=== PATIENT | male | born 1940 | race Caucasian/White ===

== ENCOUNTER 2024-04-15 08:41 | Emergency (ER) | payer OTHER ==
[2024-04-15 08:57] VITALS: TEMP 98
[2024-04-15] MEDS ORDERED: DUONEB 0.5-3 MG/3 ml Neb IH ONE (09:13)
--- NOTE | 2024-04-15 09:19 | ERPHSYRPT ---
- History of Present Illness Time Seen by Provider: 04/15/24 08:48 Source: patient, family, EMS Exam Limitations: no limitations Patient Subjective Stated Complaint: weakness Triage Nursing Assessment: Patient brought into ED per EMS and transferred to bed with assist of 3. Patient A+O X 3. Patient's skin pink, warm and dry. Patient complains of increased weakness causing falls. POA states patient has hx of lung and colon cancer dx in December. Patient just finished radiation/chemo last week. Patient has increased weakness and falls. Physician History: 83 years old male with history of COPD, tobacco abuse, GERD, hypertension, anxiety, chronic pain, recently diagnosed with with lung cancer/colon cancer status post chemoradiation's presented in the ER with increased generalized weakness fatigue tiredness. Patient does have oral thrush and has decreased oral intake. Patient feels weak to the point that he fell in the bathroom last night and hit his right elbow and wrist with skin tear. Does report hitting his head but no loss of consciousness. Reports minimal headache but no neck pain. Has shortness of breath at his baseline which is not any worse than usual. Patient does have oxygen at home which he uses as needed and currently oxygen saturation is 93% on room air. No fever or chills reported. According to [id number] who is the POA patient is having weight loss for almost 1 week because of poor intake. Allergies/Adverse Reactions: Penicillins Allergy (Verified 04/15/24 08:44) Hx Tetanus, Diphtheria Vaccination/Date Given: No Hx Influenza Vaccination/Date Given: No Hx Pneumococcal Vaccination/Date Given: No Immunizations Up to Date: Yes Travel Risk - International Travel Have you traveled outside of the country in past 3 weeks: No - Emerging Infectious Disease Are you exhibiting symptoms associated with any current EIDs: No - Review of Systems Constitutional: Fatigue, Weakness Eyes: No Symptoms Ears, Nose, & Throat: Nose Congestion, Sinus Drainage Respiratory: Cough, Dyspnea, Wheezing Cardiac: No Symptoms Abdominal/Gastrointestinal: No Symptoms Genitourinary Symptoms: No Symptoms Musculoskeletal: Arthralgias, Fall Skin: Skin Lesions Neurological: No Symptoms Psychological: Anxiety Endocrine: No Symptoms Hematologic/Lymphatic: No Symptoms Immunological/Allergic: No Symptoms - Past Medical History Pertinent Past Medical History: Yes Neurological History: No Pertinent History ENT History: No Pertinent History Cardiac History: No Pertinent History Respiratory History: COPD, Lung Cancer Endocrine Medical History: No Pertinent History Musculoskeletal History: No Pertinent History GI Medical History: Colorectal Cancer, GERD History: No Pertinent History Psycho-Social History: No Pertinent History Male Reproductive Disorders: Prostate Problems Other Medical History: Lung cancer and colon cancer - Past Surgical History Past Surgical History: No Neuro Surgical History: No Pertinent History Cardiac: No Pertinent History Respiratory: No Pertinent History Gastrointestinal: No Pertinent History Genitourinary: No Pertinent History Musculoskeletal: No Pertinent History Male Surgical History: No Pertinent History Other Surgical History: Port placement - Social History Smoking Status: Current every day smoker How long have you smoked: years Exposure to second hand smoke: No Drug Use: none - Social Determinants of Health Will the patient participate in the screening: Yes Do you worry about a steady place to live?: No Do you have any problems with any of the following?: No known problems In the past 12 months,have you had to go without utilities?: No Transportation Issues: No Has anyone in your support network made you feel unsafe?: No Have you or anyone in your house had to go without enough: No - Nursing Vital Signs Nursing Vital Signs: Initial Vital Signs Temperature 98.0 F 04/15/24 08:46 Pulse Rate 88 04/15/24 08:46 Respiratory Rate 35 H 04/15/24 08:46 Blood Pressure 149/80 04/15/24 08:46 O2 Sat by Pulse Oximetry 100 04/15/24 08:46 Pain Scale Pain Intensity 4 - Physical Exam General Appearance: no apparent distress, alert Eye Exam: PERRL/EOMI Ears, Nose, Throat Exam: moist mucous membranes, pharyngeal erythema, other (Oral thrush) Neck Exam: normal inspection, non-tender, supple, full range of motion Respiratory Exam: diminished breath sounds, rhonchi, wheezing Cardiovascular Exam: regular rate/rhythm, normal heart sounds Gastrointestinal/Abdomen Exam: soft, normal bowel sounds, No tenderness Back Exam: normal inspection Extremity Exam: normal range of motion, other (Skin tear right hand/elbow with intact range of motion. 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, sensation nml, No motor deficits Skin Exam: normal color SpO2 Interpretation: O2 applied SpO2: 100 O2 Delivery: Nasal Cannula - Course EKG Interpreted by Me: RATE (89), Sinus Rhythm, NORMAL AXIS, Q-wave, Non- specific ST Changes Ordered Tests: Active Orders 24 hr Category Date Time Status Test Department Helper STAT Care 04/15/24 09:07 Active EKG-ER Only STAT Care 04/15/24 09:06 Active IV Insertion STAT Care 04/15/24 09:06 Active Oxygen-ED Only Nasal Cannula 2 lpm Care 04/15/24 09:06 Active CERVICAL SPINE WO CONTRAST [CT] Stat Exams 04/15/24 09:06 Completed CHEST 1 VIEW (PORTABLE) Stat Exams 04/15/24 09:07 Completed ELBOW (MINIMUM 3 VIEWS) Stat Exams 04/15/24 09:15 Completed HEAD WITHOUT CONTRAST [CT] Stat Exams 04/15/24 09:06 Completed WRIST (MIN 3 VIEWS) Stat Exams 04/15/24 09:15 Completed BLOOD CULTURE Stat Lab 04/15/24 09:06 Received CBC W DIFF Stat Lab 04/15/24 09:40 Completed CMP Stat Lab 04/15/24 09:40 Completed Lactic Acid Stat Lab 04/15/24 09:38 Completed MAGNESIUM Stat Lab 04/15/24 09:40 Completed TROPONIN Q4H Lab 04/15/24 09:40 Completed UA W/RFX UR CULTURE Stat Lab 04/15/24 09:42 Completed Medication Summary Discontinued Medications Generic Name Dose Route Start Last Admin Trade Name Freq PRN Reason Stop Dose Admin Albuterol/Ipratropium 3 ml 04/15/24 09:06 04/15/24 09:32 Ipratropium/Albuterol Sulfate 3 Ml Ampul.Neb IH 04/15/24 09:07 3 ml STAT ONE Administration Albuterol/Ipratropium Confirm 04/15/24 09:13 Ipratropium/Albuterol Sulfate 3 Ml Ampul.Neb Administered 04/15/24 09:14 Dose 3 ml IH .STK-MED ONE Heparin Sodium (Beef Lung) Confirm 04/15/24 13:44 Heparin Lock Flush Pf 500 Units/5 Ml Syringe Administered 04/15/24 13:45 Dose 500 units .ROUTE .STK-MED ONE Lab/Rad Data: Laboratory Result Diagrams 04/15/24 09:40 04/15/24 09:40 Laboratory Results 04/15/24 04/15/24 04/15/24 Range/Units 09:42 09:40 09:40 WBC (4.23-9.07) x10^3/uL RBC (4.63-6.08) x10^6/uL Hgb (13.7-17.5) g/dL Hct (40.1-51.0) % MCV (79.0-92.2) fL MCH (25.7-32.2) pg MCHC (32.3-36.5) g/dL RDW (11.6-14.4) % Plt Count (163-337) x10^3/uL MPV (9.4-12.4) fL Gran % (34.0-67.9) % Immature Gran % (Auto) (0.001-0.429) % Nucleat RBC Rel Count (0.00-0.2) % Eos # (Auto) (0.04-0.54) x10^3/uL Immature Gran # (Auto) (0.001-0.031) x10^3u/L Absolute Lymphs (auto) (1.32-3.57) x10^3/uL Absolute Monos (auto) (0.30-0.82) x10^3/uL Absolute Nucleated RBC (0.00-0.012) x10^3u/L Lymphocytes % (21.8-53.1) % Monocytes % (5.3-12.2) % Eosinophils % (0.8-7.0) % Basophils % (0.2-1.2) % Absolute Granulocytes (1.78-5.38) x10^3/uL Basophils # (0.01-0.08) x10^3/uL Sodium 132 L (135-145) mmol/L Potassium 3.3 L (3.5-5.1) mmol/L Chloride 95 L (98-107) mmol/L Carbon Dioxide 32 H (22-30) mmol/L Anion Gap 8.2 (5-15) MEQ/L BUN 23 H (9-20) mg/dL Creatinine 0.96 (0.66-1.25) mg/dL Estimated GFR 78.9 ML/MIN Glucose 106 (74-106) mg/dL Lactic Acid (0.4-2.0) Calcium 11.3 H (8.4-10.2) mg/dL Magnesium 1.9 (1.6-2.3) mg/dL Total Bilirubin 0.50 (0.2-1.3) mg/dL AST 58 (17-59) U/L ALT 92 H (0-50) U/L Alkaline Phosphatase 186 H (38-126) U/L Troponin I 0.013 (0.000-0.033) ng/mL Serum Total Protein 5.2 L (6.3-8.2) g/dL Albumin 2.5 L (3.5-5.0) g/dL Urine Color Yellow (Yellow) Urine Appearance Cloudy A (Clear) Urine pH 6.5 (4.6-8.0) Ur Specific [place] 1.010 (1.005-1.030) Urine Protein Negative (Negative) Urine Glucose (UA) Negative (Negative) mg/dL Urine Ketones Negative (Negative) Urine Blood Negative (Negative) Urine Nitrite Negative (Negative) Urine Bilirubin Negative (Negative) Urine Urobilinogen 0.2 (0.2) mg/dL Ur Leukocyte Esterase Negative (Negative) U Hyaline Cast (Auto) NONE SEEN (0-2) /LPF Urine Microscopic RBC 0-2 (0-5) /HPF Urine Microscopic WBC 3-5 (0-5) /HPF Ur Epithelial Cells None Seen (None Seen) /HPF Urine Bacteria None Seen (None Seen) /HPF Urine Culture Reflexed NO (NO) 04/15/24 04/15/24 Range/Units 09:40 09:38 WBC 3.6 L (4.23-9.07) x10^3/uL RBC 2.69 L (4.63-6.08) x10^6/uL Hgb 7.9 L (13.7-17.5) g/dL Hct 24.6 L (40.1-51.0) % MCV 91.4 (79.0-92.2) fL MCH 29.4 (25.7-32.2) pg MCHC 32.1 L (32.3-36.5) g/dL RDW 19.5 H (11.6-14.4) % Plt Count 151 L (163-337) x10^3/uL MPV 10.1 (9.4-12.4) fL Gran % 82.1 H (34.0-67.9) % Immature Gran % (Auto) 0.8 H (0.001-0.429) % Nucleat RBC Rel Count 0.0 (0.00-0.2) % Eos # (Auto) 0.04 (0.04-0.54) x10^3/uL Immature Gran # (Auto) 0.03 (0.001-0.031) x10^3u/L Absolute Lymphs (auto) 0.31 L (1.32-3.57) x10^3/uL Absolute Monos (auto) 0.26 L (0.30-0.82) x10^3/uL Absolute Nucleated RBC 0.00 (0.00-0.012) x10^3u/L Lymphocytes % 8.5 L (21.8-53.1) % Monocytes % 7.2 (5.3-12.2) % Eosinophils % 1.1 (0.8-7.0) % Basophils % 0.3 (0.2-1.2) % Absolute Granulocytes 2.98 (1.78-5.38) x10^3/uL Basophils # 0.01 (0.01-0.08) x10^3/uL Sodium (135-145) mmol/L Potassium (3.5-5.1) mmol/L Chloride (98-107) mmol/L Carbon Dioxide (22-30) mmol/L Anion Gap (5-15) MEQ/L BUN (9-20) mg/dL Creatinine (0.66-1.25) mg/dL Estimated GFR ML/MIN Glucose (74-106) mg/dL Lactic Acid 0.9 (0.4-2.0) Calcium (8.4-10.2) mg/dL Magnesium (1.6-2.3) mg/dL Total Bilirubin (0.2-1.3) mg/dL AST (17-59) U/L ALT (0-50) U/L Alkaline Phosphatase (38-126) U/L Troponin I (0.000-0.033) ng/mL Serum Total Protein (6.3-8.2) g/dL Albumin (3.5-5.0) g/dL Urine Color (Yellow) Urine Appearance (Clear) Urine pH (4.6-8.0) Ur Specific [place] (1.005-1.030) Urine Protein (Negative) Urine Glucose (UA) (Negative) mg/dL Urine Ketones (Negative) Urine Blood (Negative) Urine Nitrite (Negative) Urine Bilirubin (Negative) Urine Urobilinogen (0.2) mg/dL Ur Leukocyte Esterase (Negative) U Hyaline Cast (Auto) (0-2) /LPF Urine Microscopic RBC (0-5) /HPF Urine Microscopic WBC (0-5) /HPF Ur Epithelial Cells (None Seen) /HPF Urine Bacteria (None Seen) /HPF Urine Culture Reflexed (NO) - Progress Progress: improved Progress Note: 04/15/24 13:52 83 years old with history of COPD, tobacco abuse, on 2 L oxygen as needed, GERD, lung and colon cancer with chemoradiation is evaluated in the ER for generalized weakness fatigue tiredness and a fall last night. Patient has nonfocal neuroexam, not in any distress, skin tears on the elbow and right hand which are cleaned and wrapped. X-rays of wrist and elbow are negative. CT head is negative for any acute intracranial findings. CT cervical spine is negative for any acute fracture or subluxation. Does have maxillary sinusitis and patient does report having sinus congestion. White count of 3, hemoglobin of 7.9 which according to patient and family he has chronic anemia. No GI loss. Has no chest pain. Oxygen saturation in mid to upper 90s with 2 L oxygen. Chemistries with normal renal functions, mildly low sodium and potassium, some elevation in the liver enzymes which I believe is secondary to this disease process and chemoradiation. I did not appreciate any thrush, patient has some dysphagia which I believe is secondary to radiation induced inflammation, recommended continue with increase hydration and pured diet. I have offered observation admission for IV fluid but patient/family decided to go home. Patient is feeling better after fluids. Also discussed with patient and family in detail about hospice and hospice consult has been obtained while patient is in the ER and they will think about it. Discussed signs symptoms of worsening needing return to ER which patient/family seem understanding. Stable for discharge. Counseled pt/family regarding: lab results, diagnosis, need for follow-up, rad results - Departure Departure Disposition: Home Clinical Impression: General weakness, Fall, Contusion, elbow, Skin tear, Cancer of lung, Anemia, Sinusitis Condition: Stable Critical Care Time: No Referrals: JERZY CARR LINOT[employer] OPERATOR [Primary Care Provider] - Follow up with PCP 1 day Instructions: Weakness - ED discharge instructions Additional Instructions: Drink plenty of fluids. Follow-up with primary care/oncology for reevaluation in 1 to 2 days. Return to ER for worsening of weakness, decreased oral intake or if develop fever chills/vomiting/difficulty breathing etc. Prescriptions: Azithromycin 200 mg/5 ml [Zithromax 200MG/5 ML LIQUID] 200 mg PO DAILY 5 Days #40 ml
[2024-04-15] MEDS: DUONEB 0.5-3 MG/3 ml Neb IH ONE (09:32)
[2024-04-15 09:45] LABS: Absolute Neutrophil Ct (ANC) 2.98 x10^3/uL (1.78-5.38); BASOPHIL % 0.3 % (0.2-1.2); Basophil (Absolute #) 0.01 x10^3/uL (0.01-0.08); Eosinophil % 1.1 % (0.8-7.0); Eosinophil (Absolute #) 0.04 x10^3/uL (0.04-0.54); Hematocrit 24.6 % (40.1-51.0); Hemoglobin 7.9 g/dL (13.7-17.5); IMMATURE GRAN # 0.03 x10^3u/L (0.001-0.031); IMMATURE GRAN % 0.8 % (0.001-0.429); Lymphocyte (Absolute #) 0.31 x10^3/uL (1.32-3.57); Lymphocytes % 8.5 % (21.8-53.1); Mean Cell Volume 91.4 fL (79.0-92.2); Mean Corpuscular Hemoglobin 29.4 pg (25.7-32.2); Mean Corpuscular Hgb Concent. 32.1 g/dL (32.3-36.5); Mean Platelet Volume 10.1 fL (9.4-12.4); Monocyte (Absolute #) 0.26 x10^3/uL (0.30-0.82); Monocytes % 7.2 % (5.3-12.2); Neutrophil % 82.1 % (34.0-67.9); Platelet Count 151 x10^3/uL (163-337); Red Blood Count 2.69 x10^6/uL (4.63-6.08); Red Cell Distribution Width 19.5 % (11.6-14.4); White Blood Count 3.6 x10^3/uL (4.23-9.07)
[2024-04-15 10:07] LABS: ALBUMIN 2.5 g/dL (3.5-5.0); ANION GAP 8.2 MEQ/L (5-15); BILIRUBIN,TOTAL 0.5 mg/dL (0.2-1.3); Calcium 11.3 mg/dL (8.4-10.2); Creatinine 1 0.96 mg/dL (0.66-1.25); EST GLOMERULAR FILTRATION RATE 78.9 ML/MIN; MAGNESIUM 1.9 mg/dL (1.6-2.3); Potassium 3.3 mmol/L (3.5-5.1); Total Protein 5.2 g/dL (6.3-8.2)
[2024-04-15 10:22] LABS: Appearance Cloudy (Clear); Bacteria None Seen /HPF (None Seen); Bilirubin Negative (Negative); Blood Negative (Negative); Epithelial Cells None Seen /HPF (None Seen); Glucose, Urine Negative (Negative); Hyaline Casts NONE SEEN /LPF (0-2); Ketones Negative (Negative); Leukocyte Esterase Negative (Negative); Nitrite Negative (Negative); Ph 6.5 (4.6-8.0); Protein,Urine Dip Negative (Negative); RBC 0-2 /HPF (0-5); Urobilinogen 0.2 mg/dL (0.2)
--- NOTE | 2024-04-15 10:55 | XRAY ---
Indication: Head injury following fall. Multiple contiguous axial images obtained to the head without contrast. Comparison: None Age-appropriate global atrophy and mild periventricular degenerative micro-ischemia bilaterally. No acute intracranial hemorrhage, abnormal extra-axial fluid collection, or mass effect. Fourth ventricle is midline without hydrocephalus. Bony calvarium intact. Minimal mucosal thickening right maxillary sinus without fluid leveling. Mastoid air cells are clear. Impression: Nonacute senile brain. Incidental right maxillary sinus disease.
--- NOTE | 2024-04-15 10:57 | XRAY ---
Indication: Head injury following fall. Multiple contiguous axial images obtained through the cervical spine. Sagittal and coronal reformatted images obtained. Comparison: None Osseous structures demineralized consistent with patient's age. Axial images negative for acute fracture, suspicious bony lesions, or spinal canal stenosis. Minimal multilevel endplate spurring and mild multilevel bilateral degenerative facet hypertrophy right greater than left. Sagittal and coronal reformatted images demonstrates normal alignment with vertebral body height/disc spaces maintained. No acute compression fracture or jumped facet. Normal-appearing craniocervical junction. Visualized noncontrasted soft tissues demonstrates minimal bilateral carotid calcifications and incompletely visualized right Port a Cath. Lung apices demonstrates incompletely visualized left apical pleural thickening/effusion. Impression: 1. Negative for acute fracture/subluxation. 2. Osteopenia, multilevel degenerative changes, and bilateral carotid calcifications. 3. Incompletely visualized left apical pleural thickening/effusion.
--- NOTE | 2024-04-15 10:59 | XRAY ---
Indication: Short of breath. Comparison: January 12, 2014 Portable chest again hyperinflated with new left upper infiltrate/atelectasis. No consolidation/large effusion. Heart not enlarged with new right Port-A-Cath. Bony thorax intact again with osteopenia and degenerative changes.
--- NOTE | 2024-04-15 11:01 | XRAY ---
Indication: Status post fall. Comparison: None 3 view right elbow demonstrates osteopenia. No other bony, articular, or soft tissue abnormalities.
--- NOTE | 2024-04-15 11:01 | XRAY ---
Indication: Status post fall. Comparison: None 3 view right wrist demonstrates osteopenia, radiocarpal degenerative joint space narrowing, and mild 1st metacarpal multangular scaphoid degenerative changes. Query old 1st metacarpal fracture. No acute findings.
[2024-04-15 13:28] VITALS: PULSE 77; RESP 24
[2024-04-15 13:58] VITALS: O2SAT 100
[2024-04-15 14:39] LABS: Slide Review 1 YES
[2024-04-15 14:47] VITALS: BP 132/74
== END 2024-04-15 17:54 | disposition home or self-care (01) ==
LOC: ED 08:41
DX: S50.01XA Contusion of right elbow, initial encounter (principal); S61.411A Laceration without foreign body of right hand, initial encounter; W18.30XA Fall on same level, unspecified, initial encounter; Y92.002 Bathroom of unspecified non-institutional (private) residence as the place of occurrence of the external cause; R53.1 Weakness; C34.90 Malignant neoplasm of unspecified part of unspecified bronchus or lung; D64.9 Anemia, unspecified; J32.0 Chronic maxillary sinusitis; R51.9 Headache, unspecified; Z79.899 Other long term (current) drug therapy; Z72.0 Tobacco use
CPT/HCPCS: 36415; 70450; 71045; 72125; 73080; 73110; 80053; 81001; 83605; 83735; 84484; 85025; 87040; 93005; 93041; 94640; 99285; J1642; A9270-GY